=== PATIENT | male | born 1965 | race Caucasian/White ===

== ENCOUNTER 2021-01-17 11:35 | Emergency (ER) | payer SELFPAY ==
[~2021-01-17] VITALS: Ht 182.9 cm; Wt 118.0 kg
[2021-01-17 11:40] VITALS: BP 160/99
[2021-01-17] MEDS ORDERED: BACITRACIN ZINC OINT UDPKT TOP ONE (12:45)
[2021-01-17] MEDS ORDERED: TETANUS, DIPHTHERIA, PERTUSSIS VAC/PF 0.5ML (>7YR OLD) IM ONE (13:00)
[2021-01-17] MEDS ORDERED: SULF1TAB48 PO (14:14)
[2021-01-17] MEDS ORDERED: AMOX-424 PO (14:14)
[2021-01-17] MEDS ORDERED: ACET-2708 PO (14:14)
== END 2021-01-17 15:25 | disposition home or self-care (01) ==
LOC: ER 15:25
DX: S51.812A Laceration without foreign body of left forearm, initial encounter (principal); E11.9 Type 2 diabetes mellitus without complications; Z88.5 Allergy status to narcotic agent; Z88.3 Allergy status to other anti-infective agents; Z98.890 Other specified postprocedural states; Z90.49 Acquired absence of other specified parts of digestive tract; W54.0XXA Bitten by dog, initial encounter; Y93.89 Activity, other specified; Y92.89 Other specified places as the place of occurrence of the external cause; Y99.8 Other external cause status
CPT/HCPCS: 73090; 90471; 90715; 99283; A4217; Z7610